=== PATIENT | female | born 1950 | race Caucasian/White ===

== ENCOUNTER 2016-05-19 16:53 | Emergency (ER) | payer MEDICARE, OTHER ==
--- NOTE | 2016-06-18 21:25 | ER ---
ADMIT: 05/19/2016 RM/LOC: ER [facility] MR#: [id number] [facility] [address] [place] [id number] MARGARET CAM [address] [place] [address] Emergency Room Report SEX: F AGE: 65 : 1950 DATE: 05/19/2016 ADDENDUM: This patient comes to the ER because she has been short of breath for the last 2 weeks. She has been coughing. She denies any history of breathing difficulties, but did smoke for 40 years and she recently quit 6 years ago. She states it seems to be worse with exertion or cough. On physical exam, her O2 saturation was 98% on room air. I gave her a DuoNeb. She did have decreased air movement bilaterally. When she came from [facility], she came with a chest x-ray and blood work including cardiac enzymes, BNP, and a D-dimer, which were negative. She was given Decadron 16 mg IM. We did do a walking O2 saturation on her and she was 89%. I also consulted with Dr. Scott concerning treatment of this patient. We had the respiratory manager talk to her about possibly getting oxygen. The patient did not want oxygen and refused to look into that; however, she will follow up with her doctor tomorrow. I wrote a prescription for prednisone, albuterol, and Zithromax. She was given Zithromax here, which she taught her how to use an albuterol inhaler with a spacer. DIAGNOSES: 1. Bronchitis. 2. Hypoxia with exertion. Please see my T-sheet. ADRIAN [place] / Chivo Scott MD / henri JOB #: [id number] CC: Chivo Scott MD, Attending Physician UNKNOWN, Family Physician
== END 2016-05-19 19:50 | disposition home or self-care (01) ==
LOC: ER 16:53
DX: J40 Bronchitis, not specified as acute or chronic (principal); Z87.891 Personal history of nicotine dependence; Z90.710 Acquired absence of both cervix and uterus